=== PATIENT | male | born 1975 | race Caucasian/White ===

== ENCOUNTER 2022-11-14 15:07 | Emergency (ER) | payer OTHER ==
[~2022-11-14] VITALS: Ht 175.3 cm; Wt 72.6 kg
[2022-11-14 16:11] LABS: Basophils # (auto) 0 10 ^3/uL (0-0.2); Basophils % (auto) 0.6 % (0.0-2.0); Eosinophils # (auto) 0.4 10 ^3/uL (0-0.8); Eosinophils % (auto) 6.7 % (0.0-7.0); Hemoglobin 15.4 g/dL (13.5-17.5); Lymphocytes # (auto) 1.4 10 ^3/uL (0.4-5.4); Lymphocytes % (auto) 24.5 % (10.0-50.0); Mean Corpuscular Hemoglobin 29.2 pg (28.0-32.0); Mean Corpuscular Hgb Conc. 34.3 g/dL (32.0-36.0); Mean Corpuscular Volume 85.1 fL (80.0-100.0); Monocytes # (auto) 0.8 10 ^3/uL (0-1.3); Monocytes % (auto) 14.4 % (0.0-12.0); Neutrophils # (auto) 3.2 10 ^3/uL (1.6-8.6); Neutrophils % (auto) 53.8 % (37.0-80.0); Nucleated Red Blood Cells % 0.3 %; Red Blood Cells 5.29 10^6/uL (4.5-5.90); White Blood Cell 5.9 10^3/uL (4.4-10.8)
[2022-11-14] MEDS ORDERED: IOHEXOL 300 MG/ML 100ML BOTTLE IJ ONE (16:36)
[2022-11-14 16:37] LABS: Albumin 3.8 g/dL (3.4-5.0); Calcium 8.4 mg/dL (8.5-10.1); Potassium 3.9 mmol/L (3.5-5.1)
[2022-11-14 16:42] LABS: BUN/Creatinine Ratio 16.4 (10.0-20.0); Bilirubin, Total 0.4 mg/dL (0.2-1.0)
[2022-11-14] MEDS ORDERED: VEDO1INJ IV (17:14)
[2022-11-14] MEDS ORDERED: methylPREDNISolone SOD SUCC 125 MG/2 ML VL IV ONE (17:15)
[2022-11-14] MEDS ORDERED: PRED20TA2 PO (17:17)
[2022-11-14] MEDS ORDERED: MORPHINE SULFATE INJ 2 MG/ml SYRG IV ONE (17:30)
[2022-11-14 18:17] VITALS: BP 115/76
== END 2022-11-14 18:22 | disposition home or self-care (01) ==
LOC: ER 15:07 → EEVIPCON 15:07 → ER 18:22
DX: K51.90 Ulcerative colitis, unspecified, without complications (principal); K62.5 Hemorrhage of anus and rectum
CPT/HCPCS: 36415; 74177; 80053; 85025; 96374; 96375; 99285; J2270; J2930; Q9967

== ENCOUNTER 2023-01-18 07:36 | Day surgery (SDC) | payer OTHER ==
[~2023-01-18 07:36] MED LIST: PRED20TA2 PO; VEDO1INJ IV
[2023-01-18] MEDS ORDERED: fentaNYL CITRATE 100 MCG/2 ML VL ONE (10:06)
[2023-01-18] MEDS ORDERED: MIDAZOLAM HCL 2MG/2ML 2ml VIAL (1mg/ml) ONE (10:06)
[2023-01-18] MEDS ORDERED: PROPOFOL 10 MG/ML 20 ML IV ONE ×2 (10:07→11:03)
[2023-01-18] MEDS ORDERED: ONDANSETRON HCL 4 MG/2 ML VIAL ONE (10:21)
[2023-01-18 11:08] VITALS: PULSE 92; RESP 16; O2SAT 98
[2023-01-18] MEDS ORDERED: ONDANSETRON HCL 4 MG/2 ML VIAL IV PRN (11:15)
[2023-01-18 11:45] VITALS: BP 110/70; PULSE 81; RESP 13; TEMP 98.2; O2SAT 100
== END 2023-01-19 11:45 | disposition home or self-care (01) ==
LOC: GI 07:36 → EEVIPCON 09:45 → GI 01-19 11:45
PROVIDERS: ATTEND Internal Medicine Gastroenterology
DX: K51.90 Ulcerative colitis, unspecified, without complications (principal); D12.0 Benign neoplasm of cecum; K63.89 Other specified diseases of intestine; D72.822 Plasmacytosis; K64.8 Other hemorrhoids
CPT/HCPCS: 45380; J2250; J2405; J2704; J3010; J7030